=== PATIENT | female | born 1995 | race Caucasian/White ===

== ENCOUNTER 2018-02-15 09:52 | Emergency (ER) | payer BC, MEDICAID ==
[2018-02-15] MEDS: KETOROLAC 30 MG INJ IM (10:45)
== END 2018-02-15 11:35 | disposition home or self-care (01) ==
LOC: FTE 09:52
DX: M79.602 Pain in left arm (principal); M79.601 Pain in right arm; M54.9 Dorsalgia, unspecified; M79.652 Pain in left thigh; M79.651 Pain in right thigh
CPT/HCPCS: 96372; 99284-25

== ENCOUNTER 2018-07-11 21:59 | Emergency (ER) | payer BC ==
[2018-07-11 23:13] LABS: URINE BLOOD (Dip) POC Trace-lysed (NEGATIVE); URINE GLUCOSE (Dip) POC Negative (NEGATIVE); URINE KETONES (Dip) POC Negative (NEGATIVE); URINE LEUKOCYTE EST (Dip) POC Negative (NEGATIVE); URINE NITRITE (Dip) POC Negative (NEGATIVE); URINE TOTAL PROTEIN POC Trace (NEGATIVE)
== END 2018-07-12 00:08 | disposition home or self-care (01) ==
LOC: FTE 07-12 00:08
DX: R07.9 Chest pain, unspecified (principal)
CPT/HCPCS: 71045; 81003; 81025; 93005; 99284-25

== ENCOUNTER 2018-07-18 11:50 | Emergency (ER) | payer BC | END 2018-07-18 14:25 | disposition home or self-care (01) | LOC: FTE 11:50 | DX: J32.9 Chronic sinusitis, unspecified (principal) | CPT/HCPCS: 99283; Z7502 ==

== ENCOUNTER 2018-08-18 21:00 | Emergency (ER) | payer BC ==
[2018-08-19 00:51] LABS: ADD MAN DIFF? NO
[2018-08-19 00:57] LABS: BASOPHIL # 0.1 10^3/ul (0.0-0.1); BASOPHILS % 0.6 % (0.0-2.0); EOSINOPHILS # 0.2 10^3/ul (0.0-0.5); EOSINOPHILS % 1.6 % (0.0-7.0); HEMOGLOBIN 14.2 g/dl (12.0-16.0); LYMPHOCYTES % 41.1 % (15.0-51.0); MEAN CORPUSCULAR HGB CONC 33.8 g/dl (32.0-37.0); MEAN CORPUSCULAR VOLUME 82.8 fl (82.0-101.0); MEAN PLATELET VOLUME 9.2 fl (7.4-10.4); MONOCYTE # 0.9 10^3/ul (0.3-0.9); MONOCYTES % 7.2 % (0.0-11.0); NEUTROPHILS % 49.2 % (39.0-77.0); PLATELET COUNT 473 10^3/UL (140-415); RED BLOOD COUNT 5.07 10^6/ul (4.20-5.40)
[2018-08-19 00:57] LABS: WHITE BLOOD COUNT 12.1 10^3/ul (4.8-10.8)
[2018-08-19 01:02] LABS: ADD UMIC YES; UR ASCORBIC ACID NEGATIVE (NEGATIVE); UR BILIRUBIN (Dip) NEGATIVE (NEGATIVE); UR BLOOD (Dip) 1+ mg/dL (NEGATIVE); UR CLARITY CLEAR (CLEAR); UR COLOR YELLOW (YELLOW); UR GLUCOSE (Dip) NEGATIVE (NEGATIVE); UR KETONES (Dip) 1+ mg/dL (NEGATIVE); UR LEUKOCYTE ESTERASE (Dip) NEGATIVE Leu/ul (NEGATIVE); UR MUCUS MANY /HPF (NONE SEEN); UR NITRITE (Dip) NEGATIVE (NEGATIVE); UR RBC 5 /HPF (0-5); UR SQUAMOUS EPITHELIAL CELL FEW /HPF (FEW); UR TOTAL PROTEIN (Dip) NEGATIVE (NEGATIVE); UR UROBILINOGEN (Dip) NEGATIVE (NEGATIVE); UR WBC 2 /HPF (0-5)
[2018-08-19 01:19] LABS: ALANINE AMINOTRANSFERASE 26 IU/L (13-69); ALBUMIN 4.2 g/dl (3.3-4.9); ALBUMIN/GLOBULIN RATIO 1.02; ALKALINE PHOSPHATASE 55 IU/L (42-121); ANION GAP 15 (8-16); ASPARTATE AMINO TRANSFERASE 21 IU/L (15-46); BILIRUBIN,INDIRECT 0.8 mg/dl (0-1.1); BILIRUBIN,TOTAL 0.8 mg/dl (0.2-1.3); BLOOD UREA NITROGEN 10 mg/dl (7-20); CALCIUM 9.9 mg/dl (8.4-10.2); CARBON DIOXIDE 28 mmol/L (21-31); CHLORIDE 101 mmol/L (97-110); CREATININE 0.77 mg/dl (0.44-1.00); GLUCOSE 95 mg/dl (70-220); LIPASE 101 U/L (23-300); POTASSIUM 3.6 mmol/L (3.5-5.1); SODIUM 140 mmol/L (135-144); TOTAL PROTEIN 8.3 g/dl (6.1-8.1)
== END 2018-08-19 05:23 | disposition left against medical advice (07) ==
LOC: FTE 21:00
DX: R10.11 Right upper quadrant pain (principal); R10.2 Pelvic and perineal pain; Z33.1 Pregnant state, incidental
CPT/HCPCS: 36415; 76705; 76801; 76817; 80053; 81001; 81025; 83690; 84702; 85025; 86900; 86901; 99284-25

== ENCOUNTER 2019-08-07 00:18 | Emergency (ER) | payer BC ==
[2019-08-07] MEDS: ONDANSETRON 4 MG INJ IV (03:10)
[2019-08-07] MEDS: morphine 4 MG/ML VIAL IV (03:11)
[2019-08-07] MEDS: SOD CHLORIDE 0.9% 1,000 ML IV (03:11)
[2019-08-07] MEDS: HYDROmorphONE 2 MG/ML SYG IV (04:11)
== END 2019-08-07 04:49 | disposition home or self-care (01) ==
LOC: FTE 00:18
DX: R10.11 Right upper quadrant pain (principal); R11.2 Nausea with vomiting, unspecified
CPT/HCPCS: 71046; 76705; 80053; 81001; 81025; 82150; 83690; 85025; 85610; 85730; 87086; 96374; 96375; 99285-25